=== PATIENT | female | born 1945 | race Caucasian/White ===

== ENCOUNTER 2016-11-02 20:51 | Emergency (ER) | payer MEDICARE ==
[~2016-11-02] VITALS: Ht 162.6 cm; Wt 71.0 kg
[~2016-11-02 20:51] MED LIST: ASPI325T PO; BUTA1CAP2 PO; CALCTAB19 PO; MICO2CRE34 TOPICAL; OXYC1CAP PO; PRAV10TA PO; PROT40TA PO; VITA250T3 PO
[2016-11-02 20:56] VITALS: BP 136/61; PULSE 74; RESP 16; TEMP 98.9; O2SAT 98
--- NOTE | 2016-11-02 21:49 | PD ---
HPI Chief Complaint: ENT Complaint Time Seen by Provider: 21:49 Travel History International Travel<30 days: No Contact w/Intl Traveler<30days: No Traveled to known affect area: No PFSH Past Medical History Cancer: No Cardiovascular Problems: No High Cholesterol: Yes Diminished Hearing: No Endocrine: No Gastrointestinal Disorders: Yes (DIVERTICULOSIS/DIVERTICULITIS) GERD: Yes Genitourinary: No Hiatal Hernia: No Immune Disorder: No Musculoskeletal: Yes (BULDGING DISC/CHRONIC BACK PAIN ) Neurologic: Yes Psychiatric: No Reproductive: No Respiratory: No Immunizations Current: No Migraines: Yes Thyroid Disease: No Ulcer: No Tetanus Vaccination: Never Vaccinated Influenza Vaccination: Yes Menopausal: Yes Past Surgical History Body Medical Devices: BREAST AUGMENTATION Gynecologic Surgery: Yes (LAPORSCOPIC, HYST) Hysterectomy: Yes Joint Replacement: Yes (LEFT KNEE REPLACEMENT) Tonsillectomy: Yes Other Surgery: Yes (BREAST AUGMENTATION, FACE LIFT) Social History Alcohol Use: Yes (OCCASIONALLY A DRINK WINE) Tobacco Use: No (QUIT 35+ YRS AGO) Substance Use: No Allergies-Medications (Allergen,Severity, Reaction): Coded Allergies: meperidine (Unverified Allergy, Intermediate, NAUSEA, 11/02/16) penicillin G (Unverified Allergy, Mild, RASH, 11/02/16) Reported Meds & Prescriptions Reported Meds & Active Scripts Active Oxycodone (Oxycodone HCl) 5 Mg Cap 15 Mg PO Q4H PRN Oxycodone (Oxycodone HCl) 5 Mg Cap 10 Mg PO Q4H PRN Fioricet-Codeine (Ychqbczwxb-Nmtjnfyjiirro-Ifbxzgto-Codeine) 19-902-24-30 Mg Cap 2 Cap PO Q6HR PRN Do not exceed 6 capsules/day. Reported Miconazole Topical 2% Cream 1 Applic TOPICAL BID Pravastatin 10 Mg Tab 10 Mg PO DAILY Protonix (Pantoprazole Sodium) 40 Mg Tab 40 Mg PO DAILY Calcium 600+D 200 (Calcium Carbonate-Vitamin D) 600-200 Mg-Unit Tab 1 Tab PO BID Vitamin C (Ascorbic Acid) 250 Mg Tab 1,000 Mg PO DAILY Aspirin 325 Mg Tab 325 Mg PO BID Data Data Last Documented VS Vital Signs Date Time Temp Pulse Resp B/P (MAP) Pulse Ox O2 Delivery O2 Flow Rate FiO2 11/02/16 20:56 98.9 74 16 136/61 (86) 98 Room Air Hernando,Shravanti R. MD Nov 02, 2016 21:49
[2016-11-02] MEDS ORDERED: CEPH-460 PO (21:59)
[2016-11-02] MEDS ORDERED: LIDO1SOL8 SWISH-SPIT (21:59)
--- NOTE | 2016-11-02 22:05 | PD ---
HPI Chief Complaint: ENT Complaint Time Seen by Provider: 21:49 Travel History International Travel<30 days: No Contact w/Intl Traveler<30days: No Traveled to known affect area: No History of Present Illness HPI 71-year-old white female presents to emergency department with a 6 day history of worsening sore throat, ulceration on the left lateral tongue with swelling glands on the left. The patient is 2 weeks status post right knee replacement. She denies any fever or chills. She states the pain radiates up into her left ear. Symptoms are worse with swallowing, coughing or taking a deep breath. She denies any sputum production, nausea, vomiting, abdominal pain or urinary symptoms. She is currently in a rehabilitation. She's been seen by the rehabilitation doctor who has given her prescription for pain medication she swishes and spits. I suspect this is a mouthwash. PFSH Past Medical History Cancer: No Cardiovascular Problems: No High Cholesterol: Yes Diminished Hearing: No Endocrine: No Gastrointestinal Disorders: Yes (DIVERTICULOSIS/DIVERTICULITIS) GERD: Yes Genitourinary: No Hiatal Hernia: No Immune Disorder: No Musculoskeletal: Yes (BULDGING DISC/CHRONIC BACK PAIN ) Neurologic: Yes Psychiatric: No Reproductive: No Respiratory: No Immunizations Current: No Migraines: Yes Thyroid Disease: No Ulcer: No Tetanus Vaccination: Never Vaccinated Influenza Vaccination: Yes Menopausal: Yes Past Surgical History Body Medical Devices: BREAST AUGMENTATION Gynecologic Surgery: Yes (LAPORSCOPIC, HYST) Hysterectomy: Yes Joint Replacement: Yes (LEFT KNEE REPLACEMENT) Tonsillectomy: Yes Other Surgery: Yes (BREAST AUGMENTATION, FACE LIFT) Social History Alcohol Use: Yes (OCCASIONALLY A DRINK WINE) Tobacco Use: No (QUIT 35+ YRS AGO) Substance Use: No Allergies-Medications (Allergen,Severity, Reaction): Coded Allergies: meperidine (Unverified Allergy, Intermediate, NAUSEA, 11/02/16) penicillin G (Unverified Allergy, Mild, RASH, 11/02/16) Reported Meds & Prescriptions Reported Meds & Active Scripts Active Keflex (Cephalexin) 500 Mg Capsule 500 Mg PO Q6H 7 Days Lidocaine Viscous Liq 2 % Liqd 2.5 Ml SWISH-SPIT Q2HR PRN Oxycodone (Oxycodone HCl) 5 Mg Cap 15 Mg PO Q4H PRN Oxycodone (Oxycodone HCl) 5 Mg Cap 10 Mg PO Q4H PRN Fioricet-Codeine (Asgmksiczy-Zonmyjfhnqgcq-Iwizxufo-Codeine) 14-189-32-30 Mg Cap 2 Cap PO Q6HR PRN Do not exceed 6 capsules/day. Reported Miconazole Topical 2% Cream 1 Applic TOPICAL BID Pravastatin 10 Mg Tab 10 Mg PO DAILY Protonix (Pantoprazole Sodium) 40 Mg Tab 40 Mg PO DAILY Calcium 600+D 200 (Calcium Carbonate-Vitamin D) 600-200 Mg-Unit Tab 1 Tab PO BID Vitamin C (Ascorbic Acid) 250 Mg Tab 1,000 Mg PO DAILY Aspirin 325 Mg Tab 325 Mg PO BID Review of Systems Except as stated in HPI: all other systems reviewed are Neg Physical Exam Narrative GENERAL: Well-developed, well-nourished in no acute distress. Nontoxic appearing. HEAD: Normocephalic, atraumatic. EYES: Pupils equal round and reactive. Extraocular motions intact. No scleral icterus. No injection or drainage. ENT: TMs clear without erythema. The external auditory canals clear. Nose: clear . Posterior pharynx is pink and moist. Patient has stomatic ulceration on the lateral aspect of the left tongue. No tonsillar edema or exudate. Uvula midline. Airway patent. NECK: Trachea midline.Supple, nontender, moves head freely. No central bony tenderness or spasm. Patient has left cervical adenopathy. CARDIOVASCULAR: Regular rate and rhythm without murmurs, gallops, or rubs. RESPIRATORY: Clear to auscultation. Breath sounds equal bilaterally. No wheezes , rales, or rhonchi. GASTROINTESTINAL: Abdomen soft, non-tender, nondistended. No hepato-splenomegaly , or palpable masses. No guarding. EXTREMITIES: No clubbing, cyanosis, or edema. Patient has recent right totally replacement. Dressing intact and looks well. BACK: Nontender without deformity or crepitance. No flank tenderness. Data Data Last Documented VS Vital Signs Date Time Temp Pulse Resp B/P (MAP) Pulse Ox O2 Delivery O2 Flow Rate FiO2 11/02/16 20:56 98.9 74 16 136/61 (86) 98 Room Air MDM Medical Decision Making Medical Screen Exam Complete: Yes Emergency Medical Condition: Yes Medical Record Reviewed: Yes Differential Diagnosis Differential diagnosis: Viral pharyngitis, bacterial pharyngitis, otitis media Narrative Course Patient appears to have a viral stomatitis pharyngitis. The patient is concerned that she is status post knee replacement. I've agreed to give her any oral antibiotic as well. Patient will be dispensed viscous lidocaine, and Keflex. Diagnosis Primary Impression: Stomatitis Patient Instructions: General Instructions Additional Instructions: Rest. Viscous lidocaine half a teaspoon every 2 hours swish and spit. Keflex. Continue your Magic mouthwash. Follow-up with your medical doctor in the next 3-5 days. Return to the ER for any problems. Med/Other Pt SpecificInfo: Prescription(s) given Scripts Cephalexin (Keflex) 500 Mg Capsule 500 MG PO Q6H for Infection for 7 Days, CAP 0 Refills Prov: Hussain Villagomez MD 11/02/16 Lidocaine Viscous Liq (Lidocaine Viscous Liq) 2 % Liqd 2.5 ML SWISH-SPIT Q2HR Y for PAIN, #1 BOTTLE 0 Refills Prov: Hussain Villagomez MD 11/02/16 Disposition: 01 DISCHARGE HOME Condition: Stable Tyler Pena Nov 02, 2016 22:05
[2016-11-03] MEDS ORDERED: LIDOCAINE VISCOUS 2% SOLN 15 ML UDC SWISH-SPIT PRN
[2016-11-03 02:01] VITALS: BP 128/65; PULSE 75; RESP 16; O2SAT 98
[2016-11-03] MEDS ORDERED: CEPHALEXIN MONOHYDRATE 500 MG CAP PO ONE ×2 (06:45)
[2016-11-03] MEDS ORDERED: LIDOCAINE VISCOUS 2% SOLN 15 ML UDC SWISH-SPIT ONE (06:45)
[2016-11-03 07:16] VITALS: BP 115/58; PULSE 84; RESP 18; O2SAT 98
[2016-11-04] MEDS ORDERED: CHLO1.4S2 OROPHARYNG (11:26)
== END 2016-11-03 09:28 | disposition home or self-care (01) ==
LOC: NEPD 20:51
DX: K12.1 Other forms of stomatitis (principal); Z87.891 Personal history of nicotine dependence
CPT/HCPCS: 99284

== ENCOUNTER 2017-05-12 11:52 | Emergency (ER) | payer MEDICARE ==
[~2017-05-12] VITALS: Ht 163.8 cm; Wt 70.5 kg
[~2017-05-12 11:52] MED LIST changes: +ASPI-183 PO; -ASPI325T PO; +CEPH-460 PO; +CHLO1.4S2 OROPHARYNG; +LIDO1SOL8 SWISH-SPIT
[2017-05-12 12:42] VITALS: BP 141/64; PULSE 68; RESP 18; TEMP 98.3; O2SAT 98
[2017-05-12 13:26] LABS: BASOPHIL # 0.1 TH/MM3 (0-0.2); BASOPHIL % 1.1 % (0.0-2.0); EOSINOPHIL # 0.1 TH/MM3 (0-0.4); EOSINOPHIL % 1.5 % (0.0-4.0); HEMATOCRIT 47.7 % (35.0-46.0); HEMOGLOBIN 16.1 GM/DL (11.6-15.3); LYMPH % 26.1 % (9.0-44.0); LYMPHOCYTE # 1.2 TH/MM3 (1.0-4.8); MEAN CELL VOLUME 91.7 FL (80.0-100.0); MEAN CORPUSCULAR HGB CONC 33.8 % (32.0-36.0); MEAN PLATELET VOLUME 8.2 FL (7.0-11.0); MONO % 9.4 % (0.0-8.0); MONOCYTE # 0.4 TH/MM3 (0-0.9); NEUT % 61.9 % (16.0-70.0); PLATELET COUNT 253 TH/MM3 (150-450); RED CELL DISTRIBUTION WIDTH 13.8 % (11.6-17.2); WHITE BLOOD COUNT 4.8 TH/MM3 (4.0-11.0)
[2017-05-12 13:35] LABS: PROTHROMBIN TIME - PATIENT 9.9 SEC (9.8-11.6)
[2017-05-12 13:43] LABS: BICARBONATE 26.9 MEQ/L (21.0-32.0); CALCIUM 8.6 MG/DL (8.5-10.1); CREATININE 0.83 MG/DL (0.50-1.00)
--- NOTE | 2017-05-12 13:50 | RADRPT ---
EXAM DATE/TIME: 05/12/2017 13:35 [facility] COMPARISON: No previous studies available for comparison. INDICATIONS : Headaches, post lumbar puncture Friday. RADIATION DOSE: 49.22 CTDIvol (mGy) MEDICAL HISTORY : None SURGICAL HISTORY : None. ENCOUNTER: Initial ACUITY: 1 day PAIN SCALE: 7/10 LOCATION: cranial TECHNIQUE: Multiple contiguous axial images were obtained of the head. Using automated exposure control and adj ustment of the mA and/or kV according to patient size, radiation dose was kept as low as reasonably a chievable to obtain optimal diagnostic quality images. DICOM format image data is available electro nically for review and comparison. FINDINGS: CEREBRUM: The ventricles are normal for age. No evidence of midline shift, mass lesion, hemorrhage or acute in farction. No extra-axial fluid collections are seen. POSTERIOR FOSSA: The cerebellum and brainstem are intact. The 4th ventricle is midline. The cerebellopontine angle i s unremarkable. EXTRACRANIAL: The visualized portion of the orbits is intact. SKULL: The calvaria is intact. No evidence of skull fracture. CONCLUSION: Negative for acute process Darrion Godinez MD FACR on May 12, 2017 at 13:48 Board Certified Radiologist. This report was verified electronically.
[2017-05-12] MEDS ORDERED: TOPI25 PO (14:27)
[2017-05-12] MEDS ORDERED: VITACAP7 PO (14:27)
[2017-05-12] MEDS ORDERED: PYRI100T PO (14:27)
[2017-05-12] MEDS ORDERED: BUTA1CAP PO (14:27)
[2017-05-12] MEDS ORDERED: SODIUM CHLOR 0.9% 1000 ML INJ 1,000 ML IV ONE ×2 (14:47→15:00)
[2017-05-12] MEDS ORDERED: SODIUM CHLORIDE 0.9% FLUSH 10 ML FLUSH IVF PRN (15:00)
[2017-05-12] MEDS ORDERED: PROCHLORPERAZINE INJ 10 MG/2 ML VIAL IVP ONE (15:00)
[2017-05-12] MEDS ORDERED: KETOROLAC TROMETHAMINE 30 MG/ML (IVP) VIAL IVP ONE (15:00)
[2017-05-12] MEDS ORDERED: diphenhydrAMINE HCL 50 MG/ML VIAL IVP ONE (15:00)
[2017-05-12] MEDS ORDERED: MORPHINE SULFATE 8 MG/ML INJ IV PUSH ONE (15:00)
--- NOTE | 2017-05-12 15:00 | PD ---
HPI Chief Complaint: Headache Time Seen by Provider: 14:35 Travel History International Travel<30 days: No Contact w/Intl Traveler<30days: No Traveled to known affect area: No History of Present Illness HPI The patient is a 71-year-old female who presents to the emergency department for headache. The patient does have a history of migraines with previous workup, however, underwent lumbar puncture last Friday at the [facility]. The patient is enrolled in a study for Alzheimer's disease, underwent lumbar puncture on Friday. She then developed a headache on which is diffuse, worse with sitting upright and standing, throbbing in nature. She states this headache is different than her previous headaches. She did note a headache on Friday more consistent with a migraine with photophobia or and nausea with vomiting. However, the migraine resolved but this headache has continued. She called the [facility] and advised her to come to the emergency department for a blood patch. She denies any focal deficits. She denies any neck pain. Symptoms are moderate. PFSH Past Medical History Cancer: No Cardiovascular Problems: No High Cholesterol: Yes Diminished Hearing: No Endocrine: No Gastrointestinal Disorders: Yes (DIVERTICULOSIS/DIVERTICULITIS) GERD: Yes Genitourinary: No Headaches: Yes Hiatal Hernia: No Immune Disorder: No Musculoskeletal: Yes (BULDGING DISC/CHRONIC BACK PAIN ) Neurologic: Yes Psychiatric: No Reproductive: No Respiratory: No Immunizations Current: No Migraines: Yes Thyroid Disease: No Ulcer: Yes Menopausal: Yes Past Surgical History Body Medical Devices: BREAST AUGMENTATION Gynecologic Surgery: Yes (LAPORSCOPIC, HYST) Hysterectomy: Yes Joint Replacement: Yes (LEFT/RIGHT KNEE REPLACEMENT) Tonsillectomy: Yes Other Surgery: Yes (BREAST AUGMENTATION, FACE LIFT, HAMMER TOE/BUNION LEFT FOOT -2016) Social History Alcohol Use: Yes (OCCASIONALLY A DRINK WINE) Tobacco Use: No (QUIT 35+ YRS AGO) Substance Use: No Allergies-Medications (Allergen,Severity, Reaction): Coded Allergies: meperidine (Unverified Allergy, Intermediate, NAUSEA, 05/12/17) penicillin G (Unverified Allergy, Mild, RASH, 05/12/17) Reported Meds & Prescriptions Reported Meds & Active Scripts Active Reported B Complex (B-Complex Vitamins) 1 Cap 1 Cap PO HS Vitamin B-6 (Pyridoxine HCl) 100 Mg Tab 100 Mg PO HS Topamax (Topiramate) 25 Mg Tab 25 Mg PO BID Fioricet (Teajpznbne-Xbslvehdptsnn-Pceaczqw) 50-300-40 Mg Cap 2 Cap PO Q4H PRN Pravastatin 10 Mg Tab 10 Mg PO DAILY Protonix (Pantoprazole Sodium) 40 Mg Tab 40 Mg PO DAILY Calcium 600+D 200 (Calcium Carbonate-Vitamin D) 600-200 Mg-Unit Tab 1 Tab PO BID Vitamin C (Ascorbic Acid) 250 Mg Tab 1,000 Mg PO DAILY Review of Systems Except as stated in HPI: all other systems reviewed are Neg General / Constitutional: No: Fever Eyes: No: Blurred Vision, Photophobia HENT: Positive: Headaches, No: Neck Pain Cardiovascular: No: Chest Pain or Discomfort Respiratory: No: Shortness of Breath Gastrointestinal: Positive: Nausea, Vomiting, No: Abdominal Pain Musculoskeletal: No: Weakness Neurologic: Positive: Headache Physical Exam Narrative GENERAL: Awake, alert, pleasant 71-year-old female who appears her stated age and is in no acute respiratory distress. SKIN: Focused skin assessment warm/dry. HEAD: Atraumatic. Normocephalic. EYES: Pupils equal and round. 3 mm bilateral and reactive. EOMs are intact. ENT: No nasal bleeding or discharge. Mucous membranes pink and moist. NECK: Trachea midline. No JVD. No meningeal signs. CARDIOVASCULAR: Regular rate and rhythm. No murmur appreciated. RESPIRATORY: No accessory muscle use. Clear to auscultation. Breath sounds equal bilaterally. GASTROINTESTINAL: Abdomen soft, non-tender, nondistended. Back: Small ecchymotic area just to the right of midline, probably from lumbar puncture. MUSCULOSKELETAL: No obvious deformities. No clubbing. No cyanosis. No edema. NEUROLOGICAL: Awake and alert. No obvious cranial nerve deficits. Motor grossly within normal limits. Normal speech. Nonfocal. Oriented 4. Follows commands without difficulty. PSYCHIATRIC: Appropriate mood and affect; insight and judgment normal. Data Data Last Documented VS Vital Signs Date Time Temp Pulse Resp B/P (MAP) Pulse Ox O2 Delivery O2 Flow Rate FiO2 05/12/17 15:44 22 05/12/17 15:09 98 Room Air 05/12/17 15:09 56 134/60 (84) 05/12/17 12:42 98.3 Orders Orders Complete Blood Count With Diff (05/12/17 12:44) Basic Metabolic Panel (Bmp) (05/12/17 12:44) Coag Profile (05/12/17 12:44) Ct Brain W/O Iv Contrast(Rout) (05/12/17 ) Ecg Monitoring (05/12/17 14:47) Iv Access Insert/Monitor (05/12/17 14:47) Oximetry (05/12/17 14:47) Sodium Chloride 0.9% Flush (Ns Flush) (05/12/17 15:00) Ketorolac Inj (Toradol Inj) (05/12/17 15:00) Prochlorperazine Inj (Compazine Inj) (05/12/17 15:00) Diphenhydramine Inj (Benadryl Inj) (05/12/17 15:00) Morphine Inj (Morphine Inj) (05/12/17 15:00) Sodium Chlor 0.9% 1000 Ml Inj (Ns 1000 M (05/12/17 14:47) Sodium Chlor 0.9% 1000 Ml Inj (Ns 1000 M (05/12/17 15:00) Metoclopramide Inj (Reglan Inj) (05/12/17 15:30) Labs Laboratory Tests Test 05/12/17 12:55 White Blood Count 4.8 TH/MM3 Red Blood Count 5.20 MIL/MM3 Hemoglobin 16.1 GM/DL Hematocrit 47.7 % Mean Corpuscular Volume 91.7 FL Mean Corpuscular Hemoglobin 31.0 PG Mean Corpuscular Hemoglobin Concent 33.8 % Red Cell Distribution Width 13.8 % Platelet Count 253 TH/MM3 Mean Platelet Volume 8.2 FL Neutrophils (%) (Auto) 61.9 % Lymphocytes (%) (Auto) 26.1 % Monocytes (%) (Auto) 9.4 % Eosinophils (%) (Auto) 1.5 % Basophils (%) (Auto) 1.1 % Neutrophils # (Auto) 3.0 TH/MM3 Lymphocytes # (Auto) 1.2 TH/MM3 Monocytes # (Auto) 0.4 TH/MM3 Eosinophils # (Auto) 0.1 TH/MM3 Basophils # (Auto) 0.1 TH/MM3 CBC Comment DIFF FINAL Differential Comment Prothrombin Time 9.9 SEC Prothromb Time International Ratio 1.0 RATIO Activated Partial Thromboplast Time 27.5 SEC Blood Urea Nitrogen 11 MG/DL Creatinine 0.83 MG/DL Random Glucose 147 MG/DL Calcium Level 8.6 MG/DL Sodium Level 139 MEQ/L Potassium Level 3.7 MEQ/L Chloride Level 108 MEQ/L Carbon Dioxide Level 26.9 MEQ/L Anion Gap 4 MEQ/L Estimat Glomerular Filtration Rate 68 ML/MIN [facility] Medical Decision Making Medical Screen Exam Complete: Yes Emergency Medical Condition: Yes Medical Record Reviewed: Yes Interpretation(s) Last Impressions Head CT 05/12/17 0000 Signed Impressions: Service Date/Time: Friday, May 12, 2017 13:35 - CONCLUSION: Negative for acute process Darrion Godinez MD FACR Laboratory Tests Test 05/12/17 12:55 White Blood Count 4.8 TH/MM3 Red Blood Count 5.20 MIL/MM3 Hemoglobin 16.1 GM/DL Hematocrit 47.7 % Mean Corpuscular Volume 91.7 FL Mean Corpuscular Hemoglobin 31.0 PG Mean Corpuscular Hemoglobin Concent 33.8 % Red Cell Distribution Width 13.8 % Platelet Count 253 TH/MM3 Mean Platelet Volume 8.2 FL Neutrophils (%) (Auto) 61.9 % Lymphocytes (%) (Auto) 26.1 % Monocytes (%) (Auto) 9.4 % Eosinophils (%) (Auto) 1.5 % Basophils (%) (Auto) 1.1 % Neutrophils # (Auto) 3.0 TH/MM3 Lymphocytes # (Auto) 1.2 TH/MM3 Monocytes # (Auto) 0.4 TH/MM3 Eosinophils # (Auto) 0.1 TH/MM3 Basophils # (Auto) 0.1 TH/MM3 CBC Comment DIFF FINAL Differential Comment Prothrombin Time 9.9 SEC Prothromb Time International Ratio 1.0 RATIO Activated Partial Thromboplast Time 27.5 SEC Blood Urea Nitrogen 11 MG/DL Creatinine 0.83 MG/DL Random Glucose 147 MG/DL Calcium Level 8.6 MG/DL Sodium Level 139 MEQ/L Potassium Level 3.7 MEQ/L Chloride Level 108 MEQ/L Carbon Dioxide Level 26.9 MEQ/L Anion Gap 4 MEQ/L Estimat Glomerular Filtration Rate 68 ML/MIN Differential Diagnosis Differential diagnosis includes post lumbar puncture headache, migraine, tension headache, subarachnoid hemorrhage, meningitis, cluster headache. Narrative Course IV was established and the patient was administered Toradol, morphine, Compazine , Benadryl, and 2 L of IV fluid. Labs and CT were ordered in triage per protocol, were unremarkable. CT of the brain was negative. The patient was reevaluated at 4:30 PM, her headache was down to 3/10. I had a discussion with the patient regarding possible blood patch via anesthesiology. After discussion was agreed I would call radiology to evaluate if the patient could possibly have a blood patch performed tomorrow if her headache returns. I discussed the patient with the anesthesiologist, Dr. Raines, who states the patient can go to same day surgery in the mid morning time to receive a blood patch. After discussion with the patient she would prefer to go this route of care. I believe this is reasonable, I will prescribe [place]. I did advise her if the headache returns tomorrow to follow-up with same day surgery for outpatient blood patch. She is agreeable. Diagnosis Primary Impression: Cephalgia Qualified Codes: R51 - Headache Patient Instructions: General Instructions, Narcotic given in the ED Additional Instructions: Follow-up at outpatient same day surgery tomorrow if headache persists for blood patch. Please provide the patient a copy of her CT results and lab results at discharge. Return if symptoms worsen or progress. Med/Other Pt SpecificInfo: Prescription(s) given Scripts Hydrocodone-Acetaminophen ([place]) 5 Mg-325 Mg Tab 1 TAB PO Q6H Y for PAIN, #10 TAB 0 Refills Prov: Demond Callejas MD 05/12/17 Disposition: 01 DISCHARGE HOME Condition: Stable Demond Callejas MD May 12, 2017 15:00
[2017-05-12 15:09] VITALS: BP 134/60; PULSE 56; RESP 22; O2SAT 98
[2017-05-12] MEDS ORDERED: METOCLOPRAMIDE HCL 10 MG/2 ML VIAL IV PUSH ONE (15:30)
[2017-05-12 16:00] VITALS: BP 118/58; PULSE 60; RESP 16; O2SAT 96
[2017-05-12] MEDS ORDERED: NORC5TAB PO (16:48)
[2017-05-12 17:00] VITALS: BP 105/53; PULSE 60; RESP 12; O2SAT 96
[2017-05-12 18:00] VITALS: BP 103/51; PULSE 60; RESP 12; O2SAT 96
== END 2017-05-12 18:40 | disposition home or self-care (01) ==
LOC: NEPD 11:52
DX: R51 Headache (principal); R11.2 Nausea with vomiting, unspecified
CPT/HCPCS: 70450; 80048; 85025; 85610; 85730; 96361; 96374; 96375; 99284; J1200; J1885; J2270; J2765; J7030